=== PATIENT | female | born 1955 | race Caucasian/White ===

== ENCOUNTER 2017-08-01 08:17 | Inpatient (IN) | payer OTHER ==
--- NOTE | 2017-07-29 13:18 | HP ---
Amended report to enter cosigning doctor. HISTORY AND PHYSICAL: DATE OF ADMISSION/SURGERY: 08/01/17 DATE OF OFFICE VISIT: 07/27/17 REASON FOR VISIT: A history and physical for a left total knee replacement on 08/01/17. ATTENDING SURGEON: Dr. Abelardo Jeffery* (dictated by JERROD Flowers). CHIEF COMPLAINT: Left knee pain. HISTORY OF PRESENT ILLNESS: Mrs. Jeffers is a very pleasant 61-year-old female, who presents today for history and physical examination prior to undergoing an elective left total knee replacement. In brief, the patient has failed conservative treatment such as injections and NSAID therapy and has elected to undergo a left total knee replacement. She had undergone a right total knee arthroplasty in December 2015 and has recovered well from this. PAST MEDICAL HISTORY: 1. DVT x3, on chronic Xarelto. 2. Hyperlipidemia. 3. Depression. 4. Morbid obesity. 5. Hypertension. 6. Peptic ulcer. 7. Generalized arthritis. 8. Gout. 9. Restless legs syndrome. 10. Peripheral vascular disease. PAST SURGICAL HISTORY: 1. Cholecystectomy. 2. Appendectomy. 3. D and C. 4. Exploratory laparotomy. 5. Right knee arthroscopy. 6. Right knee replacement in December 2015. 7. Upper endoscopy. MEDICATIONS: 1. Clobetasol 0.05% cream apply to affected area Tuesday, Tuesday, Tuesday. 2. ReQuip 0.5 mg 4 tablets at bedtime orally. 3. Lansoprazole 15 mg delayed release daily. 4. Cholestyramine 4 g packet once daily. 5. Amlodipine 10 mg tablet, 1 tablet daily. 6. Xarelto 20 mg tablet, 1 tablet daily. 7. Lasix 40 mg tablet, 1 tablet every other day. 8. Tylenol 325 mg 2 tablets as needed for pain every 6 hours. 9. Nitroglycerin 0.4 mg tablet sublingually as needed. 10. Vitamin B12 supplementation 500 mg tablets, 1 tablet daily. 11. Loratadine 10 mg tablets, 1 tablet daily. 12. Zyrtec 5 mg 1 tablet daily in p.m. 13. Zantac 150 mg 2 tablets at bedtime daily. 14. EpiPen as needed for allergic reaction. ALLERGIES: SULFA ANTIBIOTICS, PYRIDIUM, ERYTHROMYCIN, SAGRARIO INHIBITORS, and ADHESIVES. FAMILY MEDICAL HISTORY: Significant for 3 brothers, 1 with diabetes, 1 with cirrhosis. Father . Mother, history of heart disease. SOCIAL HISTORY: The patient is disabled due to scoliosis. She denies tobacco use or alcohol use. Does not engage in regular exercise. REVIEW OF SYSTEMS: General: Negative for fevers, chills, or night sweats. No known difficulty with anesthesia. HEENT: Denies headaches, lightheadedness, or syncopal episodes. Integumentary: No abrasions, lesions, open wounds, or sores noted. Cardiothoracic: Has had history of palpitations and chest pain. Negative stress test. Baseline right leg edema and positive for hypertension. Pulmonary: Negative for shortness of breath with exertion, chronic cough, or COPD. Negative for pulmonary emboli. GI: Positive for GERD. Positive history of chronic diarrhea. Negative for nausea, vomiting, or constipation. : Congenital single kidney. Negative for nocturia, urinary frequency, history of UTIs. Musculoskeletal: Positive for osteoarthritis. Negative for chronic or intermittent back pain. Neuro: History of right lower extremity numbness. History of depression. Denies seizure, stroke, or epilepsy. Endocrine: Negative for diabetes or thyroid disease. Hematologic: History of DVTs with last DVT in 2014, on chronic Xarelto. PHYSICAL EXAMINATION GENERAL: Well appearing, in no acute distress. Alert and oriented. VITAL SIGNS: Height 66 inches, weight 282 pounds. Blood pressure 124/72, respirations 20, temperature 98.1. BMI of 45.5. LUNGS: Clear to auscultation bilaterally. No crackles, rhonchi, or wheezes. HEART: Regular rate and rhythm. No murmurs, gallops, or rubs. ABDOMEN: Soft, nontender, nondistended. Positive obesity. Negative CVA tenderness bilaterally. NEUROLOGIC: Alert and oriented x3. Cranial nerves grossly intact. Sensation intact to light touch bilateral lower extremities. MUSCULOSKELETAL: Right with mild edema, +1 pitting and left mild edema, no pitting appreciated. Posterior tibial pulse bilaterally 2+. Range of motion of left knee 0 to 120 degrees, range of motion of right 0 to 110 degrees. RADIOGRAPHS: X-rays obtained on 07/27/17 show [id number] osteoarthritis of the left knee. IMPRESSION: The patient is a very pleasant 61-year-old female, who presents today for a history and physical examination prior to undergoing a left total knee replacement on 08/01/17. She has undergone preoperative testing and has been cleared by her primary care physician to undergo PAT testing today. She has had a previous knee replacement and her home is equipped for postoperative recovery. She has no other questions or concerns with regards to her surgery. Postoperative medications were called for the patient for pain management. She will begin Xarelto postoperatively for DVT prophylaxis. JERROD FLOWERS [id number]/[facility] #: [id number] [facility] HOSPITALKarmen
[~2017-08-01 08:17] MED LIST: Buffered Lidocaine 0.9% SYRIN* 5 ML/SYR SYRINGE INTRADERM ONE; Dexamethasone IV* 4 MG/ML 1 ML (4 MG) IV SLOW PU ONE; Famotidine IV* 10 MG/ML 2 ML (20 mg) IV ONE
[2017-08-01] MEDS ORDERED: Dexamethasone IV* 4 MG/ML 1 ML (4 MG) ONE (08:27)
[2017-08-01] MEDS ORDERED: ceFAZolin 1 GM in Dextrose (*) 1 GM/50 ML BAG IVPB ONE (08:27)
[2017-08-01] MEDS ORDERED: Famotidine IV* 10 MG/ML 2 ML (20 mg) ONE (08:27)
[2017-08-01] MEDS ORDERED: Buffered Lidocaine 0.9% SYRIN* 5 ML/SYR SYRINGE ONE (08:27)
[2017-08-01] MEDS ORDERED: ceFAZolin 2 GM PREMIX (*) 50 ML IVPB ONE (08:27)
[2017-08-01] MEDS ORDERED: fentaNYL* 50 MCG/ML 5 ML VIAL (250 MCG VIAL) ONE (10:12)
[2017-08-01] MEDS ORDERED: Atracurium* 10 MG/ML 10 ML VIAL ONE (10:12)
[2017-08-01] MEDS ORDERED: Midazolam* 1 MG/ML 5 ML VIAL (5 MG) ONE (10:12)
[2017-08-01] MEDS ORDERED: EPHEDrine (Pressors)* 50 MG/ML VIAL ONE (10:13)
[2017-08-01] MEDS ORDERED: Lidocaine 2% PF * 5 ML VIAL ONE (10:13)
[2017-08-01] MEDS ORDERED: Propofol* 10 MG/ML 20 ML BTL IV PUSH ONE (10:13)
[2017-08-01] MEDS ORDERED: Bupivacaine 0.25% SDV* 30 ML ONE (10:47)
[2017-08-01] MEDS ORDERED: fentaNYL* 50 MCG/ML 2 ML VIAL (100 MCG VIAL) ONE ×2 (10:50→11:18)
[2017-08-01] MEDS ORDERED: Ondansetron INJ* 2 MG/ML VIAL IV PRN ×2 (11:01→13:00)
[2017-08-01] MEDS ORDERED: DiMENhydriNATE IV* 50 MG/ML VIAL IV PUSH PRN (11:01)
[2017-08-01] MEDS ORDERED: Scopolamine 1.5 mg* PATCH TRANSDERM PRN (11:01)
[2017-08-01] MEDS ORDERED: fentaNYL* 50 MCG/ML 2 ML VIAL (100 MCG VIAL) IV PRN (11:01)
[2017-08-01 11:38] LABS: Urine Bilirubin Negative (Negative); Urine Glucose Negative (Negative); Urine Nitrite Negative (Negative)
[2017-08-01] MEDS ORDERED: oxyCODONE/Acetamin 5/325 MG* TAB PO PRN (13:00)
[2017-08-01] MEDS ORDERED: Ondansetron TAB* 4 MG PO PRN (13:00)
[2017-08-01] MEDS ORDERED: Bisacodyl SUPP* 10 MG SUPP PR PRN (13:00)
[2017-08-01] MEDS ORDERED: Acetaminophen TAB* 325 MG PO PRN (13:00)
[2017-08-01] MEDS ORDERED: diPHENhydraMINE IV* 50 MG/ML 1 ml VIAL (BENADRYL) IV PRN (13:00)
[2017-08-01] MEDS ORDERED: HYDROmorphone INJ* 1 MG/ML CARPUJECT SYRINGE ONE (13:18)
[2017-08-01] MEDS: HYDROmorphone INJ* 1 MG/ML CARPUJECT SYRINGE IV PRN ×5 (13:20→14:03)
--- NOTE | 2017-08-01 14:09 | RAD ---
Indication: Left knee replacement 2 views of left knee demonstrates bipolar left knee arthroplasty in satisfactory position. No loosening is noted. IMPRESSION: LEFT KNEE REPLACEMENT IN SATISFACTORY POSITION.
[2017-08-01] MEDS: D5W 1/2 NS 1000 ML BAG* 1,000 ML IV SCH ×2 (14:59→23:14)
[2017-08-01] MEDS: oxyCODONE TAB* 5 MG TAB PO PRN ×3 (15:00→21:39)
[2017-08-01 15:13] LABS: Hematocrit 41 % (35-47); Hemoglobin 13.6 g/dl (12.0-16.0)
[2017-08-01] MEDS: RiFAXimin* 550 MG TAB PO SCH ×2 (15:57→21:35)
--- NOTE | 2017-08-01 16:20 | CONS ---
CC: Dr. Jin; Dr. Jeffery* MEDICAL CONSULTATION: DATE OF CONSULT: 08/01/17 PRIMARY CARE PROVIDER: Dr. Jin. REQUESTING PROVIDER: Dr. Jeffery. CONSULTING PROVIDER: JERROD Ramírez. SUPERVISING PHYSICIAN: Dr. Nichole Hernandez. CHIEF COMPLAINT: Status post left total knee arthroplasty. HISTORY OF PRESENT ILLNESS: This is a 61-year-old female who has a history of recurrent DVTs as well as morbid obesity, hypertension, peripheral vascular disease, and irritable bowel, who presented for left total knee arthroplasty with Dr. Jeffery. The patient has been seen by her primary care provider preoperatively and notes have been reviewed. Regarding the patient's prior DVTs , the patient's first DVT was following a miscarriage and subsequent D and C procedure in 1978. She then had another DVT following a knee arthroscopy and then a third one which was spontaneous. She has been chronically anticoagulated on Xarelto and denies any history of complications including any significant bleeding events as a result of this. The patient was instructed by her primary care provider to hold her Xarelto for 5 days preoperatively, which she has been compliant with. The patient has also been rather recently treated for angioedema of unknown etiology. She was treated with lisinopril at that time, which has subsequently been stopped and she is now being treated with Zantac and Claritin and has been seen by an bus inspector. She states that she has had no further episodes of lip or tongue swelling since the initial episode. The patient underwent nuclear stress testing in October 2015 with complaints of palpitations and occasional chest pain. Her stress testing was negative at that time and she has had no recurrence of symptoms. No other known cardiopulmonary disease. The patient denies any recent acute illness, specifically denies cough, chest pain, shortness of breath, palpitations, or recent changes in exercise tolerance apart from the knee pain that has been limiting her and bringing her to surgery. She states that she was recently seen by a legal intern for her irritable bowel syndrome and has a pending colonoscopy, but was recently started on rifaximin for treatment of this. The patient was evaluated postoperatively in the recovery area. She received general anesthesia, but is alert and communicative at the time of evaluation and accompanied by her . She is experiencing some pain, but denies any severe nausea or vomiting at the time of evaluation. No complaints of chest pain or shortness of breath. PAST MEDICAL HISTORY: 1. Recurrent DVT x3. 2. Hyperlipidemia. 3. Morbid obesity with a BMI of 45. 4. Hypertension. 5. Peripheral vascular disease. 6. Irritable bowel syndrome. PAST SURGICAL HISTORY: 1. Cholecystectomy. 2. Appendectomy. 3. D and C. 4. Right knee arthroscopy. 5. Right total knee arthroplasty. 6. Exploratory laparoscopy. HOME MEDICATIONS: 1. Probiotic 1 tablet p.o. daily. 2. Rifaximin 550 mg p.o. 3 times daily. 3. Acetaminophen 1000 mg p.o. q.6 hours as needed for pain. 4. Amlodipine 10 mg p.o. daily. 4. Cetirizine 10 mg p.o. at bedtime. 5. Clobetasol 0.05% cream applied topically Tuesday, Tuesday, Tuesday. 6. Vitamin B12 500 mcg p.o. daily. 7. Lasix 40 mg p.o. every other day. 8. Lansoprazole 30 mg p.o. daily. 9. Loratadine 10 mg p.o. daily. 10. Zantac 300 mg p.o. at bedtime. 11. Xarelto 20 mg p.o. daily - held for the last 5 days. 12. Ropinirole 2 mg p.o. at bedtime. SOCIAL HISTORY: The patient is and lives at home with her . She denies any smoking history or regular alcohol consumption. REVIEW OF SYSTEMS: As noted above in HPI, all other systems have been reviewed and otherwise considered negative. PHYSICAL EXAM: Recent vitals: Temp 97.2 degrees Fahrenheit, pulse 94 beats per minute, respiratory rate 16, oxygen saturation 94% on 5 L, blood pressure 149/79 mmHg. General: This is a pleasant middle-aged female in no acute distress, accompanied by her . HEENT: Head is normocephalic, atraumatic. Mucous membranes are pink and moist. Mouth is edentulous. Cardiovascular: Heart has a regular rate and rhythm without murmurs, rubs, or gallops. Respiratory: Lungs are clear to auscultation without wheezes, crackles, or rhonchi. Abdomen: Abdomen is soft and nontender to palpation. Extremities: Right lower extremity shows no significant edema. Left lower extremity has a clean and intact surgical dressing over the left knee. Psych: The patient is alert and appropriately oriented. Skin: Limited exam, shows no concerning rashes or lesions. DIAGNOSTIC STUDIES/LAB DATA: Reviewed labs from 07/27/17, which included a CBC , PTT, INR, and a comprehensive metabolic panel. CBC is unremarkable with a preop hemoglobin of 14.9 g/dL. INR is normal at 0.97. Comprehensive metabolic panel is unremarkable with a creatinine of 0.91. Preoperative imagin. Chest x-ray, 07/27/17, shows no acute process. 2. EKG not available for review. 3. Nuclear stress testing from October 2015 was read as a negative study. ASSESSMENT AND PLAN: This is a 61-year-old female with a history of recurrent deep venous thrombosis, hyperlipidemia, morbid obesity, hypertension, peripheral vascular disease, and irritable bowel syndrome, who underwent elective left total knee arthroplasty with Dr. Jeffery earlier today. Hospitalist group has been consulted for medical comanagement. 1. Status post left knee arthroplasty - surgical report states that estimated blood loss is slightly more than typical. The patient is not symptomatic in recovery, but will order a H and H this afternoon for evaluation of severe blood loss anemia and this will be followed up tomorrow morning. Further postoperative management will be left to Orthopedic Surgery. Please see discussion of DVT prophylaxis recommendations below. 2. Recurrent deep venous thrombosis - the patient has had 3 prior DVTs, first two associated with surgery, the third being spontaneous, and the patient is chronically anticoagulated with Xarelto which has been held for the last 5 days. She is considered at high risk for DVT and would recommend resuming Xarelto as soon as deemed appropriate by Orthopedic Surgery. 3. Angioedema - this is a recent phenomenon without clear etiology, but may have been related to SAGRARIO inhibitor use, which has been discontinued. We will plan on continuing her Zantac and Claritin but closely monitoring for any signs of recurrence. 4. Hypertension - the patient is moderately hypertensive postoperatively but is also noted to be in pain. We will plan to resume on her amlodipine tomorrow. She states that she did take her amlodipine this morning, but did not take her Lasix. 5. Morbid obesity with a BMI of 45. 6. Peripheral vascular disease - unsure exactly what history exists around this. I do not see that she is on aspirin chronically or a statin. 7. Irritable bowel syndrome - the patient has chronic diarrhea as a result of this and has recently been started on rifaximin, which should be continued postoperatively. 8. Code status: The patient is full code. 9. DVT prophylaxis: Discussion as noted above with recommendations to resume Xarelto. 10. Healthcare proxy is the patient's . 11. Disposition: Hospitalist group will continue to follow along during this patient's postoperative course. Discharge planning will be per orthopedic surgery team. JERROD RAMÍREZ [id number]/[facility] #: [id number] RAMÓN
[2017-08-01] MEDS: ceFAZolin 1 GM VIAL(*) 1 GM in NS 0.9% 50 ML* 50 ML IVPB SCH (17:49)
[2017-08-01] MEDS: rOPINIRole TAB* 1 MG PO SCH (21:34)
[2017-08-01] MEDS: Famotidine TAB* 20 MG PO SCH (21:34)
[2017-08-01] MEDS: Ferrous Sulfate TAB* 325 MG PO SCH (21:34)
[2017-08-01] MEDS: Docusate CAP* 100 MG PO SCH (21:34)
[2017-08-01] MEDS: TRIMETHOPRIM 100 MG PO SCH (21:35)
[2017-08-01] MEDS: Cetirizine* 10 MG TAB PO SCH (21:35)
[2017-08-01] MEDS: Magnesium Hydroxide LIQ* 30 ML UDC PO SCH (21:37)
--- NOTE | 2017-08-02 00:47 | CONS ---
CC: Dr. Jin; Dr. Jeffery CONSULTATION REPORT: ADDENDUM: PRIMARY CARE PROVIDER: Dr. Jin. REQUESTING PROVIDER: Dr. Jeffery. HISTORY OF PRESENT ILLNESS: Ms. Jeffers is a 61-year-old lady with a past medical history of hyperlip idemia, morbid obesity, hypertension, peripheral vascular disease, IBS, history of recurrent DVT x3, one of them postop, who was admitted to [facility] [place] [place] on 08/01/17 for an elective left total knee arthroplast y. The hospitalist service was consulted for management of comorbidities. As per surgical report, the patient had EBL greater than 300 mL. She otherwise feels well. The major concern at this point is that this patient is at a very high risk for DVT and PE in the postoperative period. So, the re commendation is for reinitiation of some form of anticoagulation as soon as deemed safe by orthopedi st. We are aware that the patient had significant blood loss with her surgery, so as soon as the or thopedist feels that the benefits of anticoagulation would surpass the risk of bleeding, she should receive at least Lovenox, but ideally she should be started on her usual Xarelto dose. This case was reviewed and discussed with JERROD Meyer. [id number]/[facility] #: [id number]
[2017-08-02] MEDS: oxyCODONE TAB* 5 MG TAB PO PRN ×6 (00:51→21:22)
[2017-08-02] MEDS: ceFAZolin 1 GM VIAL(*) 1 GM in NS 0.9% 50 ML* 50 ML IVPB SCH ×2 (02:45→10:18)
--- NOTE | 2017-08-02 05:32 | OP ---
OPERATIVE REPORT: DATE OF OPERATION: 08/01/17 - Inpatient, [facility] room 341-02. DATE OF : 57 SURGEON: Abelardo Jeffery MD DRIVER EDUCATION ROAD INSTRUCTOR: Jessica Ceron RPA ANESTHESIOLOGIST: Bandar Cruz MD ANESTHESIA: General. PRE-OP DIAGNOSIS: Osteoarthritis, left knee. POST-OP DIAGNOSIS: Osteoarthritis, left knee. OPERATIVE PROCEDURE: Left total knee arthroplasty. ESTIMATED BLOOD LOSS: 150 cc. COMPLICATIONS: None. HARDWARE: Shawn Persona #5 femur, E tibia, 10 mm polyethylene, 32 mm all polyethylene patellar button. SUMMARY: Ms. Jeffers is a 61-year-old female who has been having trouble with bilateral knee pain for some time. She had been treated conservatively with anti- inflammatory, physical therapy, and injections but eventually did undergo a right total knee arthroplasty. This had worked well for her and she had presented to the office asking to undergo a left total knee. By x-ray, she had significant osteoarthritic changes where there is significant sclerosis, spur formation. I discussed with her that a total knee arthroplasty should work well to decrease her pain and improve her function. Risks of surgery such as infection, scar formation, stiffness, DVT, pulmonary embolism, hardware failure , and continued pain were some of the risks discussed. She had been declared medically optimized and wished to proceed. We had asked for clarification as to her Xarelto and we were told that it was alright to stop it and we would start it postoperatively. DESCRIPTION OF PROCEDURE: The patient was brought to the OR and general anesthesia was established. Lopez catheter was placed and a UA was sent once again. She had a positive UA from preop and was being treated with trimethoprim. Tourniquet was placed over the proximal left thigh but would only be used for several minutes during the case. Left knee was prepped and then draped. Esmarch was used to exsanguinate the leg and the tourniquet was raised. Midline incision was made, centered about the patella and it was carried down to the skin and subcutaneous fat. Extensor mechanism was found and a sharp parapatellar arthrotomy was made. With the arthrotomy and trying to resect her fat pad, there was significant bleeding, which was difficulty to staunch, so the tourniquet was let down. This did help. Fat pad was sharply excised and the soft tissues were sharply elevated from the medial side of the tibia. Patella measured 22 mm in thickness and a nice 9 mm cut was taken. Patella was then easily subluxated laterally and the knee was flexed up. Nice exposure of the femoral condyles was obtained. Step drill was used to open the femoral canal and the intramedullary guide was placed. Guide was adjusted until it was parallel to the epicondyles and posterior condyles and then pinned into place. This had been set at 3 degrees and plus 2 mm for resection. Nice femoral cut was taken. This was because when she was set at 4 degrees on the opposite side, I still had to resect more on the femoral side in order to get the knee to balance out. Femur was sized and she sat nicely for a 5 but I had remembered she had a larger size on the opposite side, so I tried with 6. Eventually though I had to go back down to the 5 as the 6 cut took almost nothing from the posterior condyles, and she was snug on the posterior condyles when I was doing the ligament balancing. With initially the 6 block and eventually a 5 block, anterior and posterior femoral cuts followed by the chamfer cuts were taken, attention was turned to the tibia. Step drill was used to open the tibial canal. Intramedullary guide was placed. Outrigger was assembled and adjusted until we were able to take 2 mm from the worn medial side. Cutting guide was pinned into place. Proximal tibial cut was taken. Working with the spacer blocks, she came out perfectly in extension and was perfect in flexion but with the system, it was designed to take an extra 2 mm posteriorly so it should have been loose. This is where I then downsized the femur. Tibia was sized and an E fit very nicely. The F was better from a side- to-side fit but overhung on the lateral side. E was pinned into place. The proximal tibia was drilled and then punched. Femur was placed and the notch was finished and stud holes were drilled. She was trialed with a 10 and came out nicely, locking into full extension and easily flexed to 120 degrees being limited by her body habitus. Patella tended to subluxate off the side. Patella was sized and a 32 fit nicely. Holes were drilled and trial was snapped into place. Even with the trial, she tended to roll over a little bit. Lateral capsule was pie crusted and this did help. Trial instrumentation was removed and the knee was copiously pulse lavaged. Cement was being prepared. Tibia followed by femur and patella were all cemented into place. Excess cement was removed and cement was allowed to harden. Once the cement had hardened, knee was searched for additional cement and a few small pieces were found. She was again trialed with a 10 and had the same wonderful motion and stability. 10 polyethylene was then snapped into the place. Parapatellar arthrotomy was repaired using interrupted #1 Vicryl sutures and knee was again copiously pulse lavaged. Subcutaneous tissues were reapproximated with 2-0 Vicryl. Skin was closed using cornell. Sterile dressing and a Cryo/Cuff were applied in the OR. The patient then had the LMA removed in the OR and was stable on transfer to the recovery room. [id number]/[facility] #: [id number] MTDD
[2017-08-02 06:31] LABS: Hematocrit 36 % (35-47); Hemoglobin 12.4 g/dl (12.0-16.0)
[2017-08-02 06:50] LABS: BUN/Creatinine Ratio 15.8 (8-20); Calcium 8.5 mg/dL (8.6-10.3); EGFR African American 77.2 (>60); Potassium 4.5 mmol/L (3.5-5.0)
[2017-08-02] MEDS: HYDROmorphone INJ* 1 MG/ML CARPUJECT SYRINGE IV SLOW PU PRN ×2 (07:52→13:11)
[2017-08-02] MEDS: Omeprazole CAP* 20 MG PO SCH (07:52)
--- NOTE | 2017-08-02 08:08 | PN ---
Progress Note - Progress Note Date of Service: 08/02/17 SOAP: Subjective: patient resting comfortably with no complaints; pain controlled with current meds Objective: Vital Signs Temp Pulse Resp BP Pulse Ox 98.0 F 102 16 148/63 92 08/02/17 03:31 08/02/17 03:31 08/02/17 07:52 08/02/17 03:31 08/02/17 03:31 Laboratory Last Values Hgb 12.4 g/dl (12.0-16.0) 08/02/17 06:09 Hct 36 % (35-47) 08/02/17 06:09 Sodium 135 mmol/L (133-145) 08/02/17 06:09 Potassium 4.5 mmol/L (3.5-5.0) 08/02/17 06:09 Chloride 105 mmol/L (101-111) 08/02/17 06:09 Carbon Dioxide 24 mmol/L (22-32) 08/02/17 06:09 Anion Gap 6 mmol/L (2-11) 08/02/17 06:09 BUN 15 mg/dL (6-24) 08/02/17 06:09 Creatinine 0.95 mg/dL (0.51-0.95) 08/02/17 06:09 Est GFR ( Amer) 77.2 (>60) 08/02/17 06:09 Est GFR (Non-Af Amer) 60.0 (>60) 08/02/17 06:09 BUN/Creatinine Ratio 15.8 (8-20) 08/02/17 06:09 Glucose 161 mg/dL (70-100) H 08/02/17 06:09 Calcium 8.5 mg/dL (8.6-10.3) L 08/02/17 06:09 Urine Color Yellow 08/01/17 11:00 Urine Appearance Clear 08/01/17 11:00 Urine pH 5.0 (5-9) 08/01/17 11:00 Ur Specific [place] 1.013 (1.010-1.030) 08/01/17 11:00 Urine Protein Negative (Negative) 08/01/17 11:00 Urine Ketones Negative (Negative) 08/01/17 11:00 Urine Blood Negative (Negative) 08/01/17 11:00 Urine Nitrate Negative (Negative) 08/01/17 11:00 Urine Bilirubin Negative (Negative) 08/01/17 11:00 Urine Urobilinogen Negative (Negative) 08/01/17 11:00 Ur Leukocyte Esterase Negative (Negative) 08/01/17 11:00 Urine Glucose Negative (Negative) 08/01/17 11:00 incision: c/d/i PE: NVI Assessment: s/p left TKA Plan: 1) PT/OT- WBAT 2) Ancef for 24 hours post-op 3) Lovenox for DVT prophylaxis 4) hospitalist co-managing
[2017-08-02] MEDS: D5W 1/2 NS 1000 ML BAG* 1,000 ML IV SCH (09:55)
--- NOTE | 2017-08-02 10:05 | PN ---
Subjective Date of Service: 08/02/17 Interval History: Patient seen and examined at bedside. Pt denies fever, chills, shortness of breath, chest discomfort, N/V/D. Pt states that this morning she had an episode of feeling like she couldn't take a deep breath when the nurse asked her to, she also had this happen again while talking on the phone to her mother. She states that this has resolved after getting up to a chair. Pt states that her pain is controlled at this time. She reports feeling fatigued and is requesting to get back into bed. Family History: Unchanged from Admission Social History: Unchanged from Admission Past Medical History: Unchanged from Admission Objective Active Medications: Acetaminophen (Tylenol Tab*) 650 mg PO Q4H PRN Reason: pain, fever Amlodipine Besylate (Norvasc Tab*) 10 mg PO QAM [facility] Bisacodyl (Dulcolax Supp*) 10 mg [place] DAILY PRN Reason: constipation Cetirizine HCl (Zyrtec*) 10 mg PO BEDTIME [facility] Clobetasol Propionate (Clobetasol 0.05% Oint*) 1 applic TOPICAL MoWeFr@0900 [facility] Diphenhydramine HCl (Benadryl Iv*) 12.5 mg IV Q6H PRN Reason: PRURITIS Docusate Sodium (Colace Cap*) 100 mg PO BID [facility] Enoxaparin Sodium (Lovenox(*)) 40 mg SUBCUT Q24H [facility] Stop: 08/03/17 09:00 Famotidine (Pepcid Tab*) 40 mg PO BEDTIME [facility] Ferrous Sulfate (Ferrous Sulfate Tab*) 325 mg PO BID [facility]NO[facility] Furosemide (Lasix Tab*) 40 mg PO EVERY OTHER DAY [facility] Hydromorphone HCl (Dilaudid Inj*) 1 mg IV SLOW PU Q4H PRN Reason: PAIN Dextrose/Sodium Chloride (D5w 1/2 Ns 1000 Ml Bag*) 1,000 mls @ 125 mls/hr IV PER RATE [facility] Cefazolin Sodium 1 gm/ Sodium (Chloride) 50 mls @ 200 mls/hr IVPB Q8H [facility] Stop: 08/02/17 10:14 Lactulose (Lactulose*) 30 ml PO Q6H PRN Reason: constipation Magnesium Hydroxide (Milk Of Magnesia Liq*) 30 ml PO BID [facility]NO[facility] Multivitamins (Theragran Tab*) 1 tab PO DAILY [facility] Omeprazole (Prilosec Cap*) 20 mg PO DAILY@0730 [facility] Reason: Protocol Ondansetron HCl (Zofran Inj*) 4 mg IV Q6H PRN Reason: nausea Ondansetron HCl (Zofran Tab*) 4 mg PO Q6H PRN Reason: NAUSEA Oxycodone HCl (Roxycodone Tab*) 10 mg PO Q3H PRN Reason: PAIN - MODERATE TO SEVERE Oxycodone/Acetaminophen (Percocet 5/325 Tab*) 1 tab PO Q3H PRN Reason: PAIN - MILD TO MODERATE Pharmacy Profile Note (Scopolomine Patch Remove*) 1 note PATCH OFF Q72H ONE Stop: 08/04/17 11:03 Polyethylene Glycol/Electrolytes (Miralax*) 17 gm PO DAILY [facility] Rifaximin (Xifaxan*) 550 mg PO TID [facility] Rivaroxaban (Xarelto (*)) 20 mg PO DAILY@1700 [facility] Ropinirole HCl (Requip Tab*) 2 mg PO BEDTIME [facility] Trimethoprim (Trimethoprim Tab*) 100 mg PO Q12HR [facility] Stop: 08/06/17 12:00 Vital Signs 08/01/17 08/01/17 08/01/17 12:52 12:55 13:00 Temperature 97.2 F Pulse Rate 94 108 107 Respiratory 16 18 16 Rate Blood Pressure 149/79 153/71 153/62 (mmHg) O2 Sat by Pulse 94 93 92 Oximetry 08/01/17 08/01/17 08/01/17 13:04 13:15 13:20 Temperature Pulse Rate 100 100 Respiratory 14 10 14 Rate Blood Pressure 156/66 138/72 (mmHg) O2 Sat by Pulse 91 91 Oximetry 08/01/17 08/01/17 08/01/17 13:25 13:30 13:34 Temperature Pulse Rate 99 Respiratory 15 12 14 Rate Blood Pressure 146/71 (mmHg) O2 Sat by Pulse 95 Oximetry 08/01/17 08/01/17 08/01/17 13:45 13:46 14:00 Temperature Pulse Rate 101 100 Respiratory 15 17 14 Rate Blood Pressure 144/62 153/73 (mmHg) O2 Sat by Pulse 95 97 Oximetry 08/01/17 08/01/17 08/01/17 14:03 14:28 15:00 Temperature 97.6 F Pulse Rate 97 Respiratory 13 18 18 Rate Blood Pressure 158/77 (mmHg) O2 Sat by Pulse 96 Oximetry 08/01/17 08/01/17 08/01/17 15:19 15:33 16:36 Temperature 97.6 F 98.2 F Pulse Rate 97 103 Respiratory 18 17 16 Rate Blood Pressure 142/64 149/57 (mmHg) O2 Sat by Pulse 94 94 Oximetry 08/01/17 08/01/17 08/01/17 17:00 18:10 18:36 Temperature 97.6 F Pulse Rate 105 Respiratory 18 18 16 Rate Blood Pressure 143/61 (mmHg) O2 Sat by Pulse 93 Oximetry 08/01/17 08/01/17 08/01/17 20:00 20:10 20:29 Temperature Pulse Rate Respiratory 17 17 Rate Blood Pressure (mmHg) O2 Sat by Pulse 92 Oximetry 08/01/17 08/01/17 08/01/17 20:38 21:39 23:39 Temperature 96.1 F Pulse Rate 109 Respiratory 16 17 16 Rate Blood Pressure 152/72 (mmHg) O2 Sat by Pulse 96 Oximetry 08/01/17 08/02/17 08/02/17 23:49 00:51 00:57 Temperature 98.1 F Pulse Rate 97 Respiratory 16 17 17 Rate Blood Pressure 143/61 (mmHg) O2 Sat by Pulse 90 Oximetry 08/02/17 08/02/17 08/02/17 01:57 02:51 03:31 Temperature 98.0 F Pulse Rate 102 Respiratory 16 16 14 Rate Blood Pressure 148/63 (mmHg) O2 Sat by Pulse 92 Oximetry 08/02/17 08/02/17 08/02/17 05:33 07:52 07:58 Temperature 98.9 F Pulse Rate 82 Respiratory 17 16 16 Rate Blood Pressure 135/56 (mmHg) O2 Sat by Pulse 93 Oximetry Oxygen Devices in Use Now: None Appearance: NAD, sitting up in bed. Ears/Nose/Mouth/Throat: Mucous Membranes Moist Respiratory: Symmetrical Chest Expansion and Respiratory Effort, Clear to Auscultation Cardiovascular: NL Sounds; No Murmurs; No JVD, RRR Abdominal: NL Sounds; No Tenderness; No Distention Extremities: - - mild edema to left LE Skin: No Rash or Ulcers, - - Dressing to left knee clean, dry and intact Neurological: Alert and Oriented x 3, NL Muscle Strength and Tone Lines/Tubes/Other Access: Clean, Dry and Intact Peripheral IV - site benign Nutrition: Taking PO's Result Diagrams: 08/02/17 06:09 08/02/17 06:09 Assess/Plan/Problems-Billing Assessment: Ms. Jeffers is a 61 yo female with PMH significant for recurrent DVT, HLD, morbid obesity, HTN, PVD and IBS who presented to the hospital for an elective left total hip arthroplasty with Dr. Jeffery on 08/01. - Patient Problems (1) Status post total left knee replacement Code(s): Z96.652 - PRESENCE OF LEFT ARTIFICIAL KNEE JOINT SNOMED Code(s): 1663471115118 Comment: - POD #1, management per Ortho - [facility] - Continue pain management, bowel regimen, OT/PT (2) DVT (deep venous thrombosis) Code(s): I82.409 - ACUTE EMBOLISM AND THOMBOS UNSP DEEP VN UNSP LOWER EXTREMITY SNOMED Code(s): 173314524 Comment: - Recurrent - Continue Xarelto (3) Angioedema Code(s): T78.3XXA - ANGIONEUROTIC EDEMA, INITIAL ENCOUNTER SNOMED Code(s): 32924360 Comment: - Suspect secondary to ACEI, this has been discontinued - Continue Zantac and Claritin (4) HTN (hypertension) Code(s): I10 - ESSENTIAL (PRIMARY) HYPERTENSION SNOMED Code(s): 40217380 Comment: - SBP 130-150's - Continue amlodipine and Lasix (5) Morbid obesity with BMI of 45.0-49.9, adult Code(s): E66.01 - MORBID (SEVERE) OBESITY DUE TO EXCESS CALORIES; Z68.42 - BODY MASS INDEX (BMI) 45.0-49.9, ADULT SNOMED Code(s): 035933371 Comment: - BMI 45.3 (6) PVD (peripheral vascular disease) Code(s): I73.9 - PERIPHERAL VASCULAR DISEASE, UNSPECIFIED SNOMED Code(s): 980811670 (7) IBS (irritable bowel syndrome) Comment: - Chronic diarrhea - Continue Rifaximin (8) DVT prophylaxis Code(s): VSL6773 - SNOMED Code(s): 617219107 Comment: - Continue Xarelto (9) Full code status Code(s): Z78.9 - OTHER SPECIFIED HEALTH STATUS SNOMED Code(s): 942763714 Status and Disposition: Inpatient. Discharge per orthopedics.
[2017-08-02] MEDS: Docusate CAP* 100 MG PO SCH ×2 (10:17→20:44)
[2017-08-02] MEDS: TRIMETHOPRIM 100 MG PO SCH ×2 (10:18→20:45)
[2017-08-02] MEDS: amLODIPine TAB* 5 MG PO SCH (10:18)
[2017-08-02] MEDS: Ferrous Sulfate TAB* 325 MG PO SCH ×2 (10:18→20:43)
[2017-08-02] MEDS: Vitamin THERAPEUTIC TAB PO SCH (10:19)
[2017-08-02] MEDS: RiFAXimin* 550 MG TAB PO SCH ×3 (10:19→21:11)
[2017-08-02] MEDS: Magnesium Hydroxide LIQ* 30 ML UDC PO SCH ×2 (10:19→20:42)
[2017-08-02] MEDS: Polyethylene Glycol 3350* 17 GM PACKET PO SCH ×2 (10:19→10:34)
[2017-08-02] MEDS ORDERED: Enoxaparin(*) 40 MG/0.4 ML SYR SUBCUT SCH (13:00)
[2017-08-02] MEDS: rOPINIRole TAB* 1 MG PO SCH (20:42)
[2017-08-02] MEDS: Famotidine TAB* 20 MG PO SCH (20:43)
[2017-08-02] MEDS: Cetirizine* 10 MG TAB PO SCH (20:45)
[2017-08-03] MEDS: oxyCODONE TAB* 5 MG TAB PO PRN ×3 (02:09→14:15)
[2017-08-03 06:01] LABS: Comments Flag Yes; Hematocrit 33 % (35-47); Hemoglobin 11.2 g/dl (12.0-16.0)
--- NOTE | 2017-08-03 07:50 | PN ---
Subjective Date of Service: 08/03/17 Interval History: Patient seen and examined at bedside. Denies fever, chills, shortness of breath , chest discomfort, N/V/D. Pt states that her pain is controlled. Family History: Unchanged from Admission Social History: Unchanged from Admission Past Medical History: Unchanged from Admission Objective Active Medications: Acetaminophen (Tylenol Tab*) 650 mg PO Q4H PRN Reason: pain, fever Amlodipine Besylate (Norvasc Tab*) 10 mg PO QAM ONOFRE Bisacodyl (Dulcolax Supp*) 10 mg [place] DAILY PRN Reason: constipation Cetirizine HCl (Zyrtec*) 10 mg PO BEDTIME ONOFRE Clobetasol Propionate (Clobetasol 0.05% Oint*) 1 applic TOPICAL MoWeFr@0900 O[facility] Diphenhydramine HCl (Benadryl Iv*) 12.5 mg IV Q6H PRN Reason: PRURITIS Docusate Sodium (Colace Cap*) 100 mg PO BID ONOFRE Enoxaparin Sodium (Lovenox(*)) 40 mg SUBCUT Q24H [facility] Stop: 08/03/17 09:00 Famotidine (Pepcid Tab*) 40 mg PO BEDTIME ONOF[facility] Ferrous Sulfate (Ferrous Sulfate Tab*) 325 mg PO BID ONOFRE Furosemide (Lasix Tab*) 40 mg PO EVERY OTHER DAY [facility]NO[facility] Hydromorphone HCl (Dilaudid Inj*) 1 mg IV SLOW PU Q4H PRN Reason: PAIN Dextrose/Sodium Chloride (D5w 1/2 Ns 1000 Ml Bag*) 1,000 mls @ 125 mls/hr IV PER RATE [facility] Influenza Virus Vaccine (Fluarix *Quad* *) 0.5 ml IM .ONCE ONE Stop: 08/03/17 09:01 Lactulose (Lactulose*) 30 ml PO Q6H PRN Reason: constipation Magnesium Hydroxide (Milk Of Magnesia Liq*) 30 ml PO BID ONOFRE Multivitamins (Theragran Tab*) 1 tab PO DAILY [facility] Omeprazole (Prilosec Cap*) 20 mg PO DAILY@0730 [facility] Ondansetron HCl (Zofran Inj*) 4 mg IV Q6H PRN Reason: nausea Ondansetron HCl (Zofran Tab*) 4 mg PO Q6H PRN Reason: NAUSEA Oxycodone HCl (Roxycodone Tab*) 10 mg PO Q3H PRN Reason: PAIN - MODERATE TO SEVERE Oxycodone/Acetaminophen (Percocet 5/325 Tab*) 1 tab PO Q3H PRN Reason: PAIN - MILD TO MODERATE Pharmacy Profile Note (Scopolomine Patch Remove*) 1 note PATCH OFF Q72H ONE Stop: 08/04/17 11:03 Polyethylene Glycol/Electrolytes (Miralax*) 17 gm PO DAILY [facility] Rifaximin (Xifaxan*) 550 mg PO TID [facility] Rivaroxaban (Xarelto (*)) 20 mg PO DAILY@1700 [facility] Ropinirole HCl (Requip Tab*) 2 mg PO BEDTIME [facility] Trimethoprim (Trimethoprim Tab*) 100 mg PO Q12HR [facility] Stop: 08/06/17 12:00 Vital Signs 08/02/17 08/02/17 08/02/17 07:52 07:58 10:18 Temperature 98.9 F Pulse Rate 82 Respiratory 16 16 18 Rate Blood Pressure 135/56 (mmHg) O2 Sat by Pulse 93 Oximetry 08/02/17 08/02/17 08/02/17 11:36 12:18 13:11 Temperature 97.3 F Pulse Rate 82 Respiratory 16 16 16 Rate Blood Pressure 136/58 (mmHg) O2 Sat by Pulse 92 Oximetry 08/02/17 08/02/17 08/02/17 14:23 15:48 16:23 Temperature 98.0 F Pulse Rate 100 Respiratory 16 17 16 Rate Blood Pressure 130/73 (mmHg) O2 Sat by Pulse 94 Oximetry 08/02/17 08/02/17 08/02/17 17:56 18:36 19:43 Temperature 99.7 F Pulse Rate 100 Respiratory 16 18 Rate Blood Pressure 127/55 (mmHg) O2 Sat by Pulse 95 94 Oximetry 08/02/17 08/02/17 08/03/17 23:30 23:40 00:00 Temperature 98.4 F Pulse Rate 103 Respiratory 16 16 Rate Blood Pressure 148/57 (mmHg) O2 Sat by Pulse 89 97 Oximetry 08/03/17 08/03/17 08/03/17 02:09 03:38 04:09 Temperature 98.1 F Pulse Rate 108 Respiratory 20 16 18 Rate Blood Pressure 152/69 (mmHg) O2 Sat by Pulse 95 Oximetry Oxygen Devices in Use Now: None Appearance: NAD, sitting up in a chair Respiratory: Symmetrical Chest Expansion and Respiratory Effort, Clear to Auscultation Cardiovascular: NL Sounds; No Murmurs; No JVD, RRR Abdominal: NL Sounds; No Tenderness; No Distention Skin: - - Dressing to left knee clean, dry and intact Neurological: Alert and Oriented x 3, NL Muscle Strength and Tone Lines/Tubes/Other Access: Clean, Dry and Intact Peripheral IV - site benign Nutrition: Taking PO's Result Diagrams: 08/03/17 05:25 08/02/17 06:09 Assess/Plan/Problems-Billing Assessment: Ms. Jeffers is a 61 yo female with PMH significant for recurrent DVT, HLD, morbid obesity, HTN, PVD and IBS who presented to the hospital for an elective left total hip arthroplasty with Dr. Jeffery on 08/01. - Patient Problems (1) Status post total left knee replacement Code(s): Z96.652 - PRESENCE OF LEFT ARTIFICIAL KNEE JOINT SNOMED Code(s): 0174460850369 Comment: - POD #2, management per Ortho - HH stable - Continue pain management, bowel regimen, OT/PT (2) DVT (deep venous thrombosis) Code(s): I82.409 - ACUTE EMBOLISM AND THOMBOS UNSP DEEP VN UNSP LOWER EXTREMITY SNOMED Code(s): 174803833 Comment: - Recurrent - Continue Xarelto (3) Angioedema Code(s): T78.3XXA - ANGIONEUROTIC EDEMA, INITIAL ENCOUNTER SNOMED Code(s): 87246262 Comment: - Suspect secondary to ACEI, this has been discontinued - Continue Zantac and Claritin (4) HTN (hypertension) Code(s): I10 - ESSENTIAL (PRIMARY) HYPERTENSION SNOMED Code(s): 93113087 Comment: - SBP 120-150's - Continue amlodipine and Lasix (5) Morbid obesity with BMI of 45.0-49.9, adult Code(s): E66.01 - MORBID (SEVERE) OBESITY DUE TO EXCESS CALORIES; Z68.42 - BODY MASS INDEX (BMI) 45.0-49.9, ADULT SNOMED Code(s): 541249609 Comment: - BMI 45.3 (6) PVD (peripheral vascular disease) Code(s): I73.9 - PERIPHERAL VASCULAR DISEASE, UNSPECIFIED SNOMED Code(s): 180720887 (7) IBS (irritable bowel syndrome) Comment: - Chronic diarrhea - Continue Rifaximin (8) DVT prophylaxis Code(s): MFM2013 - SNOMED Code(s): 561185389 Comment: - Continue Xarelto (9) Full code status Code(s): Z78.9 - OTHER SPECIFIED HEALTH STATUS SNOMED Code(s): 675538626 Status and Disposition: Inpatient. Discharge per orthopedics.
[2017-08-03] MEDS: Omeprazole CAP* 20 MG PO SCH (08:01)
[2017-08-03] MEDS ORDERED: Clobetasol 0.05% OINT* 30 GM TUBE TOPICAL SCH (09:00)
[2017-08-03] MEDS ORDERED: Furosemide TAB* 40 MG PO SCH (09:00)
[2017-08-03] MEDS ORDERED: Influenza VAC *QUAD* 2017-18* 0.5 ML SYRINGE IM ONE (09:00)
[2017-08-03] MEDS: RiFAXimin* 550 MG TAB PO SCH ×2 (09:12→14:16)
[2017-08-03] MEDS: Magnesium Hydroxide LIQ* 30 ML UDC PO SCH (09:13)
[2017-08-03] MEDS: Polyethylene Glycol 3350* 17 GM PACKET PO SCH (09:13)
[2017-08-03] MEDS: amLODIPine TAB* 5 MG PO SCH (09:14)
[2017-08-03] MEDS: Vitamin THERAPEUTIC TAB PO SCH (09:14)
[2017-08-03] MEDS: TRIMETHOPRIM 100 MG PO SCH (09:14)
[2017-08-03] MEDS: Docusate CAP* 100 MG PO SCH (09:14)
[2017-08-03] MEDS: Ferrous Sulfate TAB* 325 MG PO SCH (09:14)
--- NOTE | 2017-08-03 10:29 | PN ---
Progress Note - Progress Note Date of Service: 08/03/17 SOAP: Subjective: []Patient seen OOB in chair. Knee pain tolerable, no new SOB, no CP or dizziness. Would like to go home this afternoon. Objective: [] Vital Signs Temp 98.6 F 08/03/17 08:01 Pulse 96 08/03/17 09:37 Resp 18 08/03/17 09:19 BP 134/49 08/03/17 08:01 Pulse Ox 93 08/03/17 08:01 Intake & Output 08/02/17 08/03/17 08/03/17 18:59 06:59 18:59 Intake Total 1421 1240 Output Total 300 1 Balance 1121 1239 Intake: IV Fluids 951 D5W 1/2 NS 951 IVPB 50 D5W 1/2 NS 50 Oral 420 1240 Output: Urine 1 Lopez 300 Other: Estimated Void Large Laboratory Results - last 24 hr 08/03/17 05:25 Hgb 11.2 L Hct 33 L Left knee dressings changed, wound benign calf NT and soft +DF/PF left ankle sensation intact Assessment: []s/p Left total knee arthroplasty POD #2 Plan: []PT/OT WBAT Xarelto 20 mg daily Home this afternoon Follow up in 2-[address] Jeffery or as scheduled.
[2017-08-03 13:42] VITALS: BP 125/52
[2017-08-03] MEDS ORDERED: Rivaroxaban TAB(*) 20 MG TAB PO SCH (17:00)
--- NOTE | 2017-08-04 02:29 | DS ---
DISCHARGE SUMMARY: DATE OF ADMISSION: 08/01/17 DATE OF DISCHARGE: 08/03/17 ATTENDING PHYSICIAN: Abelardo Jeffery MD ADMISSION DIAGNOSIS: Osteoarthritis, left knee. DISCHARGE DIAGNOSIS: Osteoarthritis, left knee. SURGERY PERFORMED: Left total knee arthroplasty. HOSPITAL COURSE: The patient is a 61-year-old female, who is having difficulty with bilateral knee pain for quite sometime. She underwent right total knee arthroplasty and did well with that. She w as having continued significant pain and disability with her left knee. Her x-rays revealed signifi cant degenerative changes and it was felt she would benefit from a left total knee arthroplasty. Tracy mauro elected to proceed and was taken to the operating room under the care of Dr. Abelardo Jeffery on for the aforementioned procedure. She tolerated this procedure well, left the operating room in stable condition. Postoperatively, she has feelings of shortness of breath, which the medical team attributed to her A CE inhibitor, which was discontinued. She had no further incidences of this during her hospital sta y. She progressed very well with her physical therapy and occupational therapy goals, bearing weigh t as tolerated on the left lower extremity. She restarted her Xarelto for DVT prophylaxis postopera tively. She felt that she was stable and was ready for discharge to home after mastering her PT/OT goals on the date of 08/03/17. CONDITION ON DISCHARGE: Reveals her to be afebrile, temperature of 98.6, pulse 104, respiratory rat e 16, O2 sats 93 on room air, blood pressure 134/49. Her left knee incision is healing without evid ence of infection. Her calf is nontender and soft and her neurovascular status is intact distally. PLAN: Discharged to home, continue with physical therapy exercise program, bearing weight as tolera satish on the left lower extremity. She will continue with her Xarelto 20 mg p.o. daily for DVT prophy laxis. She is scheduled to follow up with Dr. Jeffery in the office in roughly 2 to 3 weeks, sooner if she has any changes in her condition orthopedically. JERROD VALLADARES [id number]/[facility] #: [id number]
[2017-08-04] MEDS ORDERED: Scopolomine PATCH Remove* 1 NOTE MISC PATCH OFF ONE (11:02)
== END 2017-08-03 14:25 | disposition home health service (06) | DRG 302 ==
LOC: AA 08:17 → SSU 14:20
PROVIDERS: ADMIT Orthopaedic Surgery; ATTEND Orthopaedic Surgery
PROC: 0SRD0J9 Replacement of Left Knee Joint with Synthetic Substitute, Cemented, Open Approach (ICD-10-PCS; principal; 2017-08-01 10:00)
PROC: 3E0234Z Introduction of Serum, Toxoid and Vaccine into Muscle, Percutaneous Approach (ICD-10-PCS; 2017-08-03)
DX: M17.12 Unilateral primary osteoarthritis, left knee (principal); Z68.42 Body mass index [BMI] 45.0-49.9, adult; Z79.01 Long term (current) use of anticoagulants; Z86.718 Personal history of other venous thrombosis and embolism; E78.5 Hyperlipidemia, unspecified; F32.9 Major depressive disorder, single episode, unspecified; E66.01 Morbid (severe) obesity due to excess calories; M10.9 Gout, unspecified; G25.81 Restless legs syndrome; I73.9 Peripheral vascular disease, unspecified; Z96.651 Presence of right artificial knee joint; Z88.2 Allergy status to sulfonamides; Z88.1 Allergy status to other antibiotic agents; Z88.8 Allergy status to other drugs, medicaments and biological substances; Z83.3 Family history of diabetes mellitus; Z82.49 Family history of ischemic heart disease and other diseases of the circulatory system; M41.9 Scoliosis, unspecified; K58.9 Irritable bowel syndrome, unspecified; T78.3XXA Angioneurotic edema, initial encounter; Z23 Encounter for immunization; M48.00 Spinal stenosis, site unspecified; Y84.8 Other medical procedures as the cause of abnormal reaction of the patient, or of later complication, without mention of misadventure at the time of the procedure
CPT/HCPCS: 36415; 80048; 81003; 85014; 85018; 88305; 88311; 90686; 94760; A9270-GY; C1776; J0690; J1100; J1170; J1200; J1650; J2250; J2704; J3010